=== PATIENT | male | born 1990 | race African-American/Black ===

== ENCOUNTER 2024-01-05 13:08 | Emergency (ER) | payer SELFPAY ==
[~2024-01-05] VITALS: Ht 185.4 cm; Wt 82.0 kg
[2024-01-05 13:11] VITALS: BP 137/78; PULSE 85; RESP 14; TEMP 98.8; O2SAT 99
== END 2024-01-05 14:49 | disposition left against medical advice (07) ==
LOC: ER 13:28
DX: M25.511 Pain in right shoulder (principal); Z53.21 Procedure and treatment not carried out due to patient leaving prior to being seen by health care provider